=== PATIENT | male | born 1965 | race Caucasian/White ===

== ENCOUNTER 2018-05-26 04:46 | Emergency (ER) | payer BC | END 2018-05-26 05:52 | disposition home or self-care (01) | LOC: FTE 04:46 | DX: S00.03XA Contusion of scalp, initial encounter (principal); X99.8XXA Assault by other sharp object, initial encounter; Y92.9 Unspecified place or not applicable; Z87.891 Personal history of nicotine dependence | CPT/HCPCS: 70450; 99284-25 ==